=== PATIENT | female | born 1950 ===

== ENCOUNTER 2024-03-08 13:47 | Outpatient (CLI) | payer MEDICARE, OTHER | END 2024-03-08 13:48 | disposition home or self-care (01) | LOC: BICCT 13:47 | PROVIDERS: ATTEND Internal Medicine | DX: K52.832 Lymphocytic colitis (principal); K66.0 Peritoneal adhesions (postprocedural) (postinfection); N89.8 Other specified noninflammatory disorders of vagina | CPT/HCPCS: 36415; 74177; 82565 ==